=== PATIENT | male | born 1960 | race Caucasian/White ===

== ENCOUNTER → 2021-07-03 | Outpatient (CLI) | payer BC ==
[~2021-07-03] MED LIST: LISINOPRIL2.5 MG PO; ZOCOR5 MG PO
[2021-07-03 10:39] LABS: BASO % 0.4 % (0.0-1.0); EOS # 0.1 10*3/uL (0.0-0.4); EOS % 1.8 % (1.0-4.0); HEMATOCRIT 48.4 % (42.0-52.0); LYMPH # 1.4 10*3/uL (1.3-4.4); MEAN CELL VOLUME 87.5 fl (80.0-94.0); MEAN CORPUSCULAR HGB CONC 34.3 g/dl (33.0-37.0); MEAN PLATELET VOLUME 8.8 fl (9.6-12.3); MONO # 0.8 10*3/uL (0.1-1.0); MONO % 9.5 % (3.0-9.0); NEUT # 5.6 10*3/uL (2.3-7.9); NEUT % 70.8 % (47.0-73.0); PLATELET COUNT AUTOMATED 181 10*3/uL (130-400); RED BLOOD COUNT 5.53 10*6/uL (4.50-5.90); WHITE BLOOD COUNT 7.9 10*3/uL (4.8-10.8)
[2021-07-03 11:16] LABS: ALKALINE PHOSPHATASE 63 U/L (45-117); BUN 8 mg/dl (7-24); CHLORIDE 109 mmol/L (98-107); CHOLESTEROL 144 mg/dL (<200); CREATININE 0.82 mg/dL (0.70-1.30); LDL CHOLESTEROL 73 mg/dL (9-159); POTASSIUM 4.6 mmol/L (3.5-5.1); SGOT/AST 51 IU/L (3-35); SGPT/ALT 126 U/L (12-78); SODIUM 140 mmol/L (136-145); TRIGLYCERIDES 74 mg/dl (<150)
[2021-07-03 11:23] LABS: THYROID STIM HORMONE (HS) 0.943 uIU/ml (0.358-4.75)
== END | disposition home or self-care (01) ==
LOC: LAB 10:22
PROVIDERS: ATTEND Family Medicine
DX: I10 Essential (primary) hypertension (principal); E78.2 Mixed hyperlipidemia; R55 Syncope and collapse

== ENCOUNTER → 2021-08-09 | Outpatient (CLI) | payer BC ==
[2021-08-09 14:31] LABS: TOTAL PROTEIN 6.8 gm/dL (6.4-8.2)
[2021-08-10 08:07] LABS: HBSAG Negative (Negative); HEP B CORE AB, IGM Negative (Negative); HEPATITIS C ANTIBODY <0.1 (0.0-0.9)
== END | disposition home or self-care (01) ==
LOC: LAB 13:59
PROVIDERS: ATTEND Family Medicine
DX: R74.01 Elevation of levels of liver transaminase levels (principal)

== ENCOUNTER → 2021-08-16 | Outpatient (CLI) | payer BC | END | disposition home or self-care (01) | LOC: COVID19 13:36 | PROVIDERS: ATTEND Internal Medicine | DX: U07.1 COVID-19 (principal) ==

== ENCOUNTER → 2022-09-19 | Outpatient (CLI) | payer BC ==
[2022-09-19 14:11] LABS: ALKALINE PHOSPHATASE 63 U/L (46-116); BUN 6 mg/dl (9-23); CHLORIDE 101 mmol/L (98-107); CHOLESTEROL 159 mg/dL (<200); LDL CHOLESTEROL 87 mg/dL (9-159); POTASSIUM 4.2 mmol/L (3.4-5.1); SGPT/ALT 45 U/L (10-49); TOTAL PROTEIN 6.6 gm/dL (6.0-8.0); TRIGLYCERIDES 52 mg/dl (<150)
== END | disposition home or self-care (01) ==
LOC: LAB 12:59
PROVIDERS: ATTEND Family Medicine
DX: R73.9 Hyperglycemia, unspecified (principal); I10 Essential (primary) hypertension; E78.2 Mixed hyperlipidemia; R74.01 Elevation of levels of liver transaminase levels

== ENCOUNTER → 2024-02-19 | Outpatient (CLI) | payer BC ==
[2024-02-19 11:58] LABS: HEMATOCRIT 47.5 % (42.0-52.0); MEAN CORPUSCULAR HGB 30.3 pg (27.0-31.0); MEAN CORPUSCULAR HGB CONC 34.1 g/dl (33.0-37.0); MEAN PLATELET VOLUME 9.2 fl (9.6-12.3); RED BLOOD COUNT 5.34 10*6/uL (4.50-5.90); WHITE BLOOD COUNT 6.9 10*3/uL (4.8-10.8)
[2024-02-19 12:42] LABS: ALKALINE PHOSPHATASE 75 U/L (46-116); BUN 9 mg/dl (9-23); CHLORIDE 102 mmol/L (98-107); CHOLESTEROL 163 mg/dL (<200); CPK 83 U/L (34-171); LDL CHOLESTEROL 83 mg/dL (9-159); SGPT/ALT 36 U/L (5-49); TRIGLYCERIDES 124 mg/dl (<150)
[2024-02-19 12:46] LABS: VITAMIN D, 25-HYDROXY 32.3 ng/mL (30-100)
== END | disposition home or self-care (01) ==
LOC: LAB 11:27
PROVIDERS: ATTEND Family Medicine
DX: Z12.5 Encounter for screening for malignant neoplasm of prostate (principal); E55.9 Vitamin D deficiency, unspecified; E78.00 Pure hypercholesterolemia, unspecified; I10 Essential (primary) hypertension

== ENCOUNTER → 2024-05-06 | Outpatient (CLI) | payer BC ==
[2024-05-06 14:03] LABS: HEMATOCRIT 46.6 % (42.0-52.0); MEAN CELL VOLUME 88.3 fl (80.0-94.0); MEAN CORPUSCULAR HGB 30.1 pg (27.0-31.0); MEAN CORPUSCULAR HGB CONC 34.1 g/dl (33.0-37.0); MEAN PLATELET VOLUME 8.6 fl (9.6-12.3); RED BLOOD COUNT 5.28 10*6/uL (4.50-5.90); RED CELL DISTRI WIDTH 13.1 % (0-14.5); WHITE BLOOD COUNT 6.1 10*3/uL (4.8-10.8)
[2024-05-06 14:36] LABS: ALKALINE PHOSPHATASE 71 U/L (46-116); BUN 11 mg/dl (9-23); CHLORIDE 105 mmol/L (98-107); CHOLESTEROL 160 mg/dL (<200); CPK 66 U/L (34-171); LDL CHOLESTEROL 93 mg/dL (9-159); POTASSIUM 4.1 mmol/L (3.4-5.1); SGPT/ALT 29 U/L (5-49); TOTAL PROTEIN 6.9 gm/dL (6.0-8.0); TRIGLYCERIDES 43 mg/dl (<150)
== END | disposition home or self-care (01) ==
LOC: LAB 13:38
PROVIDERS: ATTEND Family Medicine
DX: I10 Essential (primary) hypertension (principal); E78.00 Pure hypercholesterolemia, unspecified

== ENCOUNTER → 2024-08-07 | Outpatient (CLI) | payer BC ==
[2024-08-07 13:25] LABS: HEMATOCRIT 44.3 % (42.0-52.0); MEAN CELL VOLUME 86.7 fl (80.0-94.0); MEAN CORPUSCULAR HGB 29.7 pg (27.0-31.0); MEAN CORPUSCULAR HGB CONC 34.3 g/dl (33.0-37.0); MEAN PLATELET VOLUME 8.2 fl (9.6-12.3); RED BLOOD COUNT 5.11 10*6/uL (4.50-5.90); RED CELL DISTRI WIDTH 12.5 % (0-14.5); WHITE BLOOD COUNT 6.2 10*3/uL (4.8-10.8)
[2024-08-07 13:46] LABS: ALKALINE PHOSPHATASE 65 U/L (46-116); BUN 10 mg/dl (9-23); CHLORIDE 100 mmol/L (98-107); CHOLESTEROL 162 mg/dL (<200); CPK 80 U/L (34-171); LDL CHOLESTEROL 90 mg/dL (9-159); POTASSIUM 4.2 mmol/L (3.4-5.1); SGPT/ALT 24 U/L (5-49); TOTAL PROTEIN 6.4 gm/dL (6.0-8.0); TRIGLYCERIDES 63 mg/dl (<150)
== END | disposition home or self-care (01) ==
LOC: LAB 13:06
PROVIDERS: ATTEND Family Medicine
DX: I10 Essential (primary) hypertension (principal); E78.00 Pure hypercholesterolemia, unspecified; E74.9 Disorder of carbohydrate metabolism, unspecified

== ENCOUNTER → 2024-11-11 | Outpatient (CLI) | payer BC ==
[2024-11-11 14:24] LABS: MEAN CELL VOLUME 87.4 fl (80.0-94.0); MEAN CORPUSCULAR HGB 30.2 pg (27.0-31.0); MEAN PLATELET VOLUME 8.4 fl (9.6-12.3); NUCLEATED RED BLOOD CELL 0.0 % (0.0-0.0); NUCLEATED RED BLOOD CELL 0.0 10*3/uL (0.0-0.0); PLATELET COUNT AUTOMATED 174.0 10*3/uL (130-400); RED CELL DISTRI WIDTH 13.5 % (0-14.5)
[2024-11-11 14:49] LABS: BUN 14 mg/dl (9-23); CPK 102 U/L (34-171); LDL CHOLESTEROL 80 mg/dL (9-159); SGPT/ALT 27 U/L (5-49)
== END | disposition home or self-care (01) ==
LOC: LAB 14:10
PROVIDERS: ATTEND Family Medicine
DX: I10 Essential (primary) hypertension (principal); E78.00 Pure hypercholesterolemia, unspecified; E74.9 Disorder of carbohydrate metabolism, unspecified

== ENCOUNTER → 2025-02-02 | Outpatient (CLI) | payer BC ==
[2025-02-02 13:24] LABS: MEAN CELL VOLUME 88.2 fl (80.0-94.0); MEAN CORPUSCULAR HGB 30.4 pg (27.0-31.0); MEAN PLATELET VOLUME 8.4 fl (9.6-12.3); NUCLEATED RED BLOOD CELL 0.0 % (0.0-0.0); NUCLEATED RED BLOOD CELL 0.0 10*3/uL (0.0-0.0); PLATELET COUNT AUTOMATED 192.0 10*3/uL (130-400); RED CELL DISTRI WIDTH 12.6 % (0-14.5)
[2025-02-02 13:45] LABS: BUN 14 mg/dl (9-23); LDL CHOLESTEROL 79 mg/dL (9-159); SGPT/ALT 23 U/L (5-49)
== END | disposition home or self-care (01) ==
LOC: LAB 13:04
PROVIDERS: ATTEND Family Medicine
DX: E11.65 Type 2 diabetes mellitus with hyperglycemia (principal); E55.9 Vitamin D deficiency, unspecified; Z12.5 Encounter for screening for malignant neoplasm of prostate; E78.00 Pure hypercholesterolemia, unspecified; Z79.899 Other long term (current) drug therapy